=== PATIENT | male | born 1985 | race Caucasian/White ===

== ENCOUNTER 2016-06-07 17:04 | Emergency (ER) | payer OTHER ==
[~2016-06-07] VITALS: Ht 175.3 cm; Wt 65.9 kg
[2016-06-07 17:16] VITALS: BP 146/89; TEMP 98.3
[2016-06-07 18:16] VITALS: PULSE 90
== END 2016-06-07 18:16 | disposition home or self-care (01) ==
LOC: COL.ER 17:04
DX: S61.412A Laceration without foreign body of left hand, initial encounter (principal); Z23 Encounter for immunization; W26.0XXA Contact with knife, initial encounter; Y92.000 Kitchen of unspecified non-institutional (private) residence as the place of occurrence of the external cause; S61.512A Laceration without foreign body of left wrist, initial encounter

== ENCOUNTER → 2019-04-15 | Outpatient (CLI) | payer OTHER | LOC: COL.RAD 13:42 | DX: N50.89 Other specified disorders of the male genital organs (principal) ==